=== PATIENT | female | born 1965 | race Caucasian/White ===

== ENCOUNTER 2021-01-06 16:39 | Emergency (ER) | payer OTHER ==
[2021-01-06] MEDS ORDERED: NAPROXEN500 MG PO (18:19)
== END 2021-01-06 19:10 | disposition home or self-care (01) ==
LOC: FER 16:39
DX: S92.511A Displaced fracture of proximal phalanx of right lesser toe(s), initial encounter for closed fracture (principal); F17.210 Nicotine dependence, cigarettes, uncomplicated; W22.8XXA Striking against or struck by other objects, initial encounter; Y92.009 Unspecified place in unspecified non-institutional (private) residence as the place of occurrence of the external cause
CPT/HCPCS: 73630